=== PATIENT | male | born 1990 | race African-American/Black ===

== ENCOUNTER 2025-11-19 09:18 | Emergency (ER) | payer OTHER ==
[~2025-11-19] VITALS: Ht 172.7 cm; Wt 104.5 kg
--- NOTE | 2025-11-19 12:21 | ED.PDOC ---
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, Medications, Allergies Allergies: Coded Allergies: NO KNOWN ALLERGIES (Unverified , 11/19/25) Information Source: Patient, Emergency Med Personnel Mode of Arrival: EMS Severity: Moderate Timing: Days Duration: Since onset Location: Leg Mechanism: Insect Occurence: Outdoors Object: Other (Insect bite) Condition of Object: None Retained Foreign Body: No Wound Type: Papule, Pustule Tetanus: >5 Years History of: None Associated Signs and Symptoms: Fever, N/V, Redness, Swelling, Pain Past Medical History PAST MEDICAL HISTORY: Denies Surgical History: Denies all surgeries Family History Family History: Reviewed,noncontributory to illness, No family hx of Cancer, No family hx of DM, No family hx of Heart shonda, No family hx of HTN, No family hx ofKidney shonda, No family hx of Liver shonda, No family hx of Lung shonda, No family hx of Stroke Social History Smoker: Non-Smoker, Cigarettes Alcohol: Occasionally Drugs: Marijuana Lives In: Home Constitutional: reports: chills, fever, malaise; denies: diaphoresis, fatigue, sweats, weakness, others EENTM: denies: blurred vision, double vision, ear bleeding, ear discharge, ear drainage, ear pain, ear ringing, eye pain, eye redness, hearing loss, mouth pain, mouth swelling, nasal discharge, nose bleeding, nose congestion, nose pain, photophobia, tearing, throat pain, throat swelling, voice changes, others Respiratory: denies: cough, hemoptysis, orthopnea, SOB at rest, shortness of breath, SOB with excertion, stridor, wheezing, others Cardiovascular: denies: chest pain, dizzy spells, diaphoresis, Dyspnea on exertion, edema, irregular heart beat, left arm pain, lightheadedness, palpitations, PND, syncope, others Genitourinary: denies: burning, dysuria, flank pain, frequency, hematuria, incontinence, penile discharge, penile sore, pain, testicle pain, testicle swelling, urgency, others Neurological: reports: dizziness; denies: fainting, headache, left sided numbness, left sided weakness, numbness, paresthesia, pre-existing deficit, right sided numbness, right sided weakness, seizure, speech problems, tingling, tremors, weakness, others Musculoskeletal: denies: back pain, gout, joint pain, joint swelling, muscle pain, muscle stiffness, neck pain, others Integumetry: denies: bruises, change in color, change in hair/nails, dryness, laceration, lesions, lumps, rash, wounds, others Allergic/Immunocompromised: denies: Difficulty Healing, Frequent Infections, Hives, Itching, others Hematologic/Lymphatic: denies: anemia, blood clots, easy bleeding, easy bruising, swollen glands, others Endocrine: denies: excessive hunger, excessive sweating, excessive thirst, excessive urination, flushing, intolerance to cold, intolerance to heat, unexplained weight gain, unexplained weight loss, others Psychiatric: denies: anxiety, bipolar disorder, depression, hopeless, panic disorder, schizophrenia, sleepless, suicidal, others All Other Systems: Reviewed and Negative Physical Exam General Appearance: Mild Distress HEENT: Normal ENT Inspection, Pharynx Normal, TMs Normal Neck: Full Range of Motion, Non-Tender, Normal, Normal Inspection Respiratory: Chest Non-Tender, Lungs Clear, No Accessory Muscle Use, No Respir atory Distress, Normal Breath Sounds Cardiovascular: No Edema, No JVD, No Murmur, No Gallop, Normal Peripheral Pulses, Regular Rate/Rhythm Breast Exam: Deferred Gastrointestinal: No Organomegaly, Non Tender, No Pulsatile Mass, Normal Bowel Sounds, Soft Genitalia: Deferred Pelvic: Deferred Rectal: Deferred Extremities: No calf tenderness, Normal capillary refill, Normal inspection, Normal range of motion, Non-tender, No pedal edema Musculoskeletal : Location: Left Extremity Location: Thigh Apperance: Swelling, Limited ROM, Tenderness: Moderate, Other (Pustular draining blood and pus surrounding cellulitis) 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 Was a procedure done?: No Differential Diagnosis (INTG) Differential Diagnosis: Cellulitis, Insect Envenomation, Puncture Wound Differential Diagnosis: Abscess Differential Diagnosis: Cellulitis Abscess: Abscess, Bacteremia, Cellulitis, Erysipelas Differential Diagnosis: Cellulitis, Puncture Wound X-Ray, Labs, Meds, VS Vital Signs Date Time Temp Pulse Resp B/P (MAP) Pulse Ox O2 Delivery O2 Flow Rate FiO2 11/19/25 12:28 82 19 98 Room Air 11/19/25 12:28 98.9 82 19 138/96 (110) 98 98.9 11/19/25 09:20 100.6 100 20 130/97 97 100.6 Current Medications Medications (Trade) Dose Ordered Sig/Nelly Route Start Time Stop Time Status Last Admin Clindamycin Phosphate 50 ml @ 50 mls/hr ONCE ONCE IV 11/19/25 12:15 11/19/25 13:14 DC 11/19/25 13:11 Ketorolac Tromethamine (Toradol Injection) 30 mg ONCE ONCE IV 11/19/25 12:15 11/19/25 12:16 DC 11/19/25 13:11 Diphtheria/ Tetanus/Acell Pertussis (Boostrix T-Dap) 0.5 ml ONCE ONCE IM 11/19/25 12:15 11/19/25 12:16 DC 11/19/25 12:22 X-Ray, Labs, Meds, VS Comment Course in the [employer] patient came in because of insect bite to the left thigh with a possible envenomation an early cellulitis Wound is cleaned with peroxide patient received Cleocin 900 mg IV Toradol 30 mg IV and a Tdap Patient will be discharged home with a antibiotics and pain medication and will be re-evaluated within 24 hours Time of 1ST Reevaluation: 12:00 Reevaluation 1ST: Unchanged Time of 2ND Reevaluation: 13:22 Reevaluation 2ND: Improved Consultation: PCP Patient Education/Counseling: Diagnosis, Treatment, Prognosis, Need For Follow Up Family Education/Counseling: Diagnosis, Treatment, Prognosis, Need For Follow Up, No Family Present SEPSIS Sepsis Screen Date sepsis recognized/suspect: Nov 19, 2025 Time Sepsis recognized/suspect: 919 Recent Procedure: No On Antibiotic Therapy: No Respiratory Rate >20: No Heart Rate >90: Yes Temp<36 C (96.8 F) or >38.3 C: Yes SBP <90 or MAP <65 mmHG: No New Acute Mental Status Change: No Is the patient on CPAP, BIPAP,: No Physician Orders Cleanse Wound With Wound Clean (11/19/25 12:11) Cover Wound With Dry Dressing (11/19/25 12:11) Vital Signs Date Time Temp Pulse Resp B/P (MAP) Pulse Ox O2 Delivery O2 Flow Rate FiO2 11/19/25 12:28 82 19 98 Room Air 11/19/25 12:28 98.9 82 19 138/96 (110) 98 98.9 11/19/25 09:20 100.6 100 20 130/97 97 100.6 Medications Medications Dose Ordered Sig/Nelly Route Start Time Stop Time Status Last Admin Dose Admin Clindamycin Phosphate 50 ml @ 50 mls/hr ONCE ONCE IV 11/19/25 12:15 11/19/25 13:14 DC 11/19/25 13:11 Diphtheria/ Tetanus/Acell Pertussis 0.5 ml ONCE ONCE IM 11/19/25 12:15 11/19/25 12:16 DC 11/19/25 12:22 Ketorolac Tromethamine 30 mg ONCE ONCE IV 11/19/25 12:15 11/19/25 12:16 DC 11/19/25 13:11 Departure 1 Departure Time of Disposition: 13:22 Impression: Primary Impression: Insect bite of thigh with local reaction Qualified Codes: S70.362A - Insect bite (nonvenomous), left thigh, initial encounter; W57.XXXA - Bitten or stung by nonvenomous insect and other nonvenomous arthropods, initial encounter Additional Impression: Insect bite of thigh, infected Qualified Codes: S70.362A - Insect bite (nonvenomous), left thigh, initial encounter; L08.9 - Local infection of the skin and subcutaneous tissue, unspecified; W57.XXXA - Bitten or stung by nonvenomous insect and other nonvenomous arthropods, initial encounter Disposition: HOME / SELF CARE / HOMELESS Condition: Fair Additional Instructions: Cleaned with a peroxide and follow up with your PCP You need to be re-evaluated within 24 hours e-Prescriptions Diclofenac Potassium (Diclofenac Potassium) 50 Mg Tab 1 TAB PO TIDP for 10 Days, #30 TAB Prov: REYES CASTELLANOS MD 11/19/25 Cefdinir (Cefdinir) 300 Mg Cap 300 MG PO BID for 10 Days, #20 CAP Prov: REYES CASTELLANOS MD 11/19/25 Discharged With: Self Critical Care Note Critical Care Time?: No Stability Stability form required: No Heart Score Heart Score: Heart Score Response (Comments) Value History N/A 0 EKG N/A 0 Age <45 0 Risk Factors No known risk factors 0 Troponin N/A 0 Total 0 REYES CASTELLANOS MD Nov 19, 2025 12:21
[2025-11-19] MEDS: TETANUS-DIPTH-ACEL PERTUSSIS 0.5ML SYR Tdap IM ONE (12:22)
[2025-11-19 12:28] VITALS: BP 138/96; PULSE 82; RESP 19; TEMP 98.9; O2SAT 98
[2025-11-19] MEDS: KETOROLAC TROMETH 30 MG/ML 1ML VIAL IV ONE (13:11)
[2025-11-19] MEDS: CLINDAMYCIN 900MG IV 50 ML IV ONE (13:11)
[2025-11-19] MEDS ORDERED: CEFD300C2 PO (13:26)
[2025-11-19] MEDS ORDERED: DICL50TA2 PO (13:26)
== END 2025-11-19 14:05 | disposition home or self-care (01) ==
LOC: ER 09:18 → EDBD 09:18 → ER 14:05
DX: S70.362A Insect bite (nonvenomous), left thigh, initial encounter (principal); L08.9 Local infection of the skin and subcutaneous tissue, unspecified; F10.90 Alcohol use, unspecified, uncomplicated; F12.90 Cannabis use, unspecified, uncomplicated; W57.XXXA Bitten or stung by nonvenomous insect and other nonvenomous arthropods, initial encounter; Y93.89 Activity, other specified; Y92.89 Other specified places as the place of occurrence of the external cause; Y99.8 Other external cause status
CPT/HCPCS: 90471; 90715; 96365; 96375; 99284; J1885; J3490